=== PATIENT | female | born 1970 | race Caucasian/White ===

== ENCOUNTER 2025-04-09 09:06 | Emergency (ER) | payer MEDICAID ==
[~2025-04-09] VITALS: Ht 154.9 cm; Wt 66.2 kg
[2025-04-09 09:19] VITALS: BP 131/84; TEMP 97.9
[2025-04-09] MEDS ORDERED: METH4TAB17 PO (10:09)
[2025-04-09 10:33] VITALS: O2SAT 99
== END 2025-04-09 10:51 | disposition home or self-care (01) ==
LOC: ER 09:24
DX: M79.645 Pain in left finger(s) (principal); M79.644 Pain in right finger(s)
CPT/HCPCS: 73130-TC